=== PATIENT | male | born 1975 | race Caucasian/White ===

== ENCOUNTER 2017-03-13 21:58 | Emergency (ER) | payer MEDICAID | END 2017-03-13 23:55 | disposition home or self-care (01) | LOC: D.ER 21:58 | DX: L02.416 Cutaneous abscess of left lower limb (principal); F32.9 Major depressive disorder, single episode, unspecified; F17.200 Nicotine dependence, unspecified, uncomplicated ==

== ENCOUNTER 2019-03-03 21:58 | Emergency (ER) | payer SELFPAY ==
[~2019-03-03] VITALS: Ht 180.3 cm; Wt 93.2 kg
[2019-03-03 22:00] VITALS: Ht 180.3 cm; Wt 93.2 kg
[2019-03-03] MEDS ORDERED: CELEXA40 MG PO (22:01)
[2019-03-03 22:30] LABS: APPEARANCE CLEAR (CLEAR); BILIRUBIN NEGATIVE (NEGATIVE); COLOR YELLOW (YELLOW); GLUCOSE NEGATIVE (NEGATIVE); KETONE NEGATIVE (NEGATIVE); NITRITE NEGATIVE (NEGATIVE); PROTEIN NEGATIVE (NEGATIVE); SPECIFIC GRAVITY 1.015 (1.005-1.020); UROBILINOGEN NORMAL (NORMAL)
[2019-03-03] MEDS ORDERED: VOLTAREN75 MG PO (23:23)
[2019-03-04 00:12] VITALS: BP 127/86
== END 2019-03-04 00:12 | disposition home or self-care (01) ==
LOC: D.ER 21:58
PROVIDERS: Emergency Medicine
DX: Z20.2 Contact with and (suspected) exposure to infections with a predominantly sexual mode of transmission (principal)

== ENCOUNTER 2020-03-01 12:46 | Emergency (ER) | payer SELFPAY ==
[~2020-03-01] VITALS: Ht 180.3 cm; Wt 93.2 kg
[~2020-03-01 12:46] MED LIST: CELEXA40 MG PO; VOLTAREN75 MG PO
[2020-03-01 12:53] VITALS: BP 132/89; Ht 180.3 cm; Wt 93.2 kg
[2020-03-01] MEDS ORDERED: BACTRIM 400-801 TAB PO (13:10)
[2020-03-01] MEDS ORDERED: NAPROSYN500 MG PO (13:10)
== END 2020-03-01 13:32 | disposition home or self-care (01) ==
LOC: D.ER 12:46
DX: L03.116 Cellulitis of left lower limb (principal); S90.861A Insect bite (nonvenomous), right foot, initial encounter; W57.XXXA Bitten or stung by nonvenomous insect and other nonvenomous arthropods, initial encounter; Y93.9 Activity, unspecified; Y92.9 Unspecified place or not applicable

== ENCOUNTER 2020-12-02 14:18 | Emergency (ER) | payer OTHER ==
[~2020-12-02] VITALS: Ht 180.3 cm; Wt 93.2 kg
[~2020-12-02 14:18] MED LIST changes: +BACTRIM 400-801 TAB PO; +HYDROCODON-ACE1 EA10 PO; +NAPROSYN500 MG PO
[2020-12-02 14:23] VITALS: BP 118/85; Ht 180.3 cm; Wt 93.2 kg
[2020-12-02 14:46] LABS: BASOPHILS 0.8 % (0-2); EOSINOPHILS 1.4 % (0-7); HEMATOCRIT 42.2 % (42.0-54.0); HEMOGLOBIN 14.4 g/dL (13.5-17.5); IMMATURE GRANULOCYTES 0.5 % (0-5); LYMPHOCYTE ABS# 2.61 10x3/uL (1.32-3.57); MCH 29.9 pg (26.0-34.0); MCHC 34.1 g/dL (31.0-37.0); MCV 87.7 fL (80.0-100.0); MEAN PLATELET VOLUME 9.1 fL (7.4-10.4); MONOCYTES 3.7 % (2-11); NEUTROPHILS 60.6 % (40-80); PLATELET COUNT 387 10x3/uL (130-400); RBC 4.81 10x6/uL (4.20-6.10); RDW 13.3 % (11.5-14.5); WBC 7.9 10x3/uL (4.8-10.8)
[2020-12-02 15:13] LABS: ANION GAP 10.2 mmol/L (8-16); CALCIUM 9.1 mg/dL (8.5-10.1); CARBON DIOXIDE 29.1 mmol/L (21.0-32.0); CREATININE - SERUM 1.2 mg/dL (0.6-1.3); POTASSIUM - SERUM 4.3 mmol/L (3.5-5.1)
[2020-12-02 15:19] LABS: ALBUMIN 3.5 g/dL (3.4-5.0); BILIRUBIN - TOTAL 0.21 mg/dL (0.2-1.3)
[2020-12-02] MEDS ORDERED: ACETAMINOPHEN500 M1 PO (16:30)
[2020-12-02] MEDS ORDERED: IBUPROFEN800 MG PO (16:30)
[2020-12-02] MEDS ORDERED: CYCLOBENZAPRINE10 MG PO (16:30)
== END 2020-12-02 16:56 | disposition home or self-care (01) ==
LOC: D.ER 14:18
PROVIDERS: Family Medicine
DX: M54.2 Cervicalgia (principal); M54.9 Dorsalgia, unspecified; M79.10 Myalgia, unspecified site; T14.8XXA Other injury of unspecified body region, initial encounter; V89.2XXA Person injured in unspecified motor-vehicle accident, traffic, initial encounter; Y93.9 Activity, unspecified; Y92.9 Unspecified place or not applicable

== ENCOUNTER 2020-12-12 02:20 | Emergency (ER) | payer BC, OTHER ==
[~2020-12-12] VITALS: Ht 180.3 cm; Wt 93.2 kg
[~2020-12-12 02:20] MED LIST changes: +ACETAMINOPHEN500 M1 PO; +CYCLOBENZAPRINE10 MG PO; +IBUPROFEN800 MG PO
[2020-12-12 02:26] VITALS: Ht 180.3 cm; Wt 93.2 kg
[2020-12-12] MEDS ORDERED: PREDNISONE20 MG PO (03:24)
[2020-12-12 06:15] VITALS: BP 128/85
== END 2020-12-12 04:04 | disposition home or self-care (01) ==
LOC: D.ER 02:20
DX: M54.5 Low back pain (principal)